=== PATIENT | female | born 1970 | race Caucasian/White ===

== ENCOUNTER 2016-09-12 15:44 | Outpatient (CLI) | payer OTHER | END 2016-09-12 15:45 | LOC: LABRHC 15:44 | PROVIDERS: ATTEND Physician Assistant | DX: M54.5 Low back pain (principal) | CPT/HCPCS: 87086 ==

== ENCOUNTER 2018-10-12 14:08 | Outpatient (CLI) | payer OTHER | END 2018-10-12 14:10 | LOC: LAB 14:08 | PROVIDERS: ATTEND Family Medicine | DX: N91.2 Amenorrhea, unspecified (principal) | CPT/HCPCS: 36415; 82670; 83001; 83002 ==